=== PATIENT | female | born 1965 | race Caucasian/White ===

== ENCOUNTER 2016-12-22 14:54 | Emergency (ER) | payer BC ==
[2016-12-22 15:38] VITALS: BP 127/78
--- NOTE | 2016-12-22 16:03 | UC ---
Skin Complaint HPI - HPI Summary HPI Summary: 51 y/o female presents to the urgent care c/o tick bite 3 weeks ago in her abdomen. She states she feel joint pains,mild fever, body aches, lightheaded, FRANK since yesterday. She is concerned w/ Lyme disease since she didn't take any prophylactic treatment. Pt Denies, rash, SOB, chest pain, urinary symptoms, N/V/ D. - History of Current Complaint Chief Complaint: UCGeneralIllness Time Seen by Provider: 12/22/16 15:55 Stated Complaint: TICK BITE Hx Obtained From: Patient ?: No Onset/Duration: Gradual Onset, Lasting Days, Still Present Skin Exposure Onset/Duration: Weeks Ago Onset Severity: Mild Current Severity: Moderate Pain Intensity: 4 - joint pains and FRANK Pain Scale Used: 0-10 Numeric Location: Diffuse - body aches Character: Pain - dull Aggravating: Nothing Alleviating: OTC Meds Associated Signs & Symptoms: Positive: Fever - mild at home, on and off, Lightheadedness. Negative: Nausea, Vomiting, Chest Pain, Rash, Joint Swelling Related History: Possible Reaction to: Insect - Allergy/Home Medications Allergies/Adverse Reactions: Allergies Allergy/AdvReac Type Severity Reaction Status Date / Time No Known Allergies Allergy Verified 05/26/13 07:41 Review of Systems Constitutional: Fever - mild at home, Fatigue Skin: Negative Eyes: Negative ENT: Negative Respiratory: Negative Cardiovascular: Negative Gastrointestinal: Negative Genitourinary: Negative Motor: Negative Neurovascular: Negative Musculoskeletal: Arthralgia Neurological: Headache Psychological: Negative All Other Systems Reviewed And Are Negative: Yes PMH/Surg Hx/FS Hx/Imm Hx Previously Healthy: Yes - Surgical History Surgical History: Yes Surgery Procedure, Year, and Place: Hysterectomy - Family History Known Family History: Positive: Hypertension Family History: Dyslipidemia - Social History Occupation: Employed Full-time Lives: With Family Alcohol Use: Rare Substance Use Type: None Smoking Status (MU): Never Smoked Tobacco Physical Exam Triage Information Reviewed: Yes Appearance: Well-Appearing, No Pain Distress, Well-Nourished, Obese Vital Signs: Initial Vital Signs Temp 98.8 F 12/22/16 15:33 Pulse 71 12/22/16 15:33 Resp 18 12/22/16 15:33 BP 127/78 12/22/16 15:33 Pulse Ox 99 12/22/16 15:33 Vital Signs Reviewed: Yes Eye Exam: Normal Eyes: Positive: Conjunctiva Clear - PERRLA, EOMI, fundi grossly normal ENT Exam: Normal ENT: Positive: Normal ENT inspection, Hearing grossly normal, Pharynx normal, TMs normal Dental Exam: Normal Neck exam: Normal Neck: Positive: Supple, Nontender, No Lymphadenopathy Respiratory Exam: Normal Respiratory: Positive: Chest non-tender, Lungs clear, Normal breath sounds Cardiovascular Exam: Normal Cardiovascular: Positive: RRR, No Murmur, Pulses Normal, Brisk Capillary Refill Abdominal Exam: Normal Abdomen Description: Positive: Nontender, No Organomegaly, Soft. Negative: CVA Tenderness (R), CVA Tenderness (L) Bowel Sounds: Positive: Present Musculoskeletal Exam: Normal Musculoskeletal: Positive: Strength Intact, ROM Intact, No Edema Neurological Exam: Normal Psychological Exam: Normal Skin: Positive: rashes - discrete tick bite in the upper mid abdomen. Course/Dx - Course Course Of Treatment: 51 y/o female presents to the urgent care c/o tick bite 3 weeks ago in her abdomen. She states she feel joint pains,mild fever, body aches , lightheaded, FRANK since yesterday. She is concerned w/ Lyme disease since she didn't take any prophylactic treatment. Pt Denies, rash, SOB, chest pain, urinary symptoms, N/V/D.HX obtained. Pt educated on lyme disease and the probability of Lyme Serology to return negative in the first 2 weeks. Pt requested antibiotic treatment. Pt RX Doxycycline PO and advised to take full course of ABX and f/u with her PCP for lyme serology. Pt understood and agreed. - Differential Diagnoses - Skin Complaint Differential Diagnoses: Cellulitis, Eczema, Poison Eva, Scabies, Tick Born Illness, Urticaria - Diagnoses Provider Diagnoses: 1-Tick bite. 2-Headache and arthalgia Discharge - Discharge Plan Condition: Stable Disposition: HOME Prescriptions: DOXYcycline CAP(*) [DOXYcycline 100MG CAP(*)] 100 mg PO BID #42 cap Ibuprofen TAB* [Motrin TAB* 800 MG] 800 mg PO Q6H #20 tab Patient Education Materials: Lyme Disease (ED) Referrals: Ever SYLVESTER,Cachorro Badillo [Primary Care Provider] - 2 Weeks Additional Instructions: Please take full course of the antibiotic. Please observe the area for the development or Erythema Migrans for upto 30 days following exposure of tick bite. Components of the tick saliva can cause transient erythema that should not be confused with Erythema Migrans. F/u with your PCP in 2 weeks for Lyme serology and further management.
== END 2016-12-22 16:26 | disposition home or self-care (01) ==
LOC: UCEAST 14:54
DX: S30.861A Insect bite (nonvenomous) of abdominal wall, initial encounter (principal); R51 Headache; M25.50 Pain in unspecified joint; E66.9 Obesity, unspecified
CPT/HCPCS: 99212; G0463